=== PATIENT | male | born 1965 | race Caucasian/White ===

== ENCOUNTER 2017-02-28 11:00 | Inpatient (IN) | payer OTHER ==
[~2017-02-28] VITALS: Ht 180.3 cm; Wt 107.4 kg
--- NOTE | ~2017-02-28 | EKG ---
[address] [place] [address] ELECTROCARDIOGRAM REPORT Name: LEEROYJINNY M Room #: 421-P [facility].R.#: [id number] Admission: 02/28/17 Attend Phys: Leeroy Aguilar MD Discharge: Date of : 69 Report #: [id number] THIS REPORT FOR: //name// [facility] ED Test Date: 2017-02-28 Test Time: 11:18:16 Pat Name: JINNY UMAÑA Department: Room: [facility] Gender: M [employer] Floor Walker: Gomez WINTER : 1965 Requested By: Sherley Philippe Order Number: [id number] MD: Fadi Lincoln Measurements Intervals [place] Rate: 123 P: 39 NC: 142 QRS: -18 QRSD: 91 T: 125 QT: 330 QTc: 472 Interpretive Statements Sinus tachycardia Probable left atrial enlargement LVH with secondary repolarization abnormality Baseline wander in lead(s) V4,V5 Compared to ECG 03/10/2013 06:14:06 No significant change was found Electronically Signed On 03-01-2017 8:18:10 CDT by Fadi Lincoln [email or web address] <ELECTRONICALLY SIGNED> By: Fadi Lincoln MD, [facility] 03/01/17 0818 1118 1118 Fadi Lincoln MD, [facility] /EPI
--- NOTE | ~2017-02-28 | 2DMMODE ---
[facility] [address] [place] [address] 2 D/M-MODE ECHOCARDIOGRAM Name: JINNY UMAÑA Room #: 421-P [facility] IN .R.#: [id number] Admission: 02/28/17 Attend Phys: Leti Robledo Discharge: Date of : 69 Date of Service: 03/01/17 1033 Report #: [id number] THIS REPORT FOR: //name// APPROVED REPORT Study performed: 03/01/2017 08:08:32 EXAM: Comprehensive 2D, Doppler, and color-flow Echocardiogram Patient Location: Echo lab Room #: 421 Other Information Study Quality: Adequate Indications Abnormal ECG Congestive Heart Failure 2D Dimensions RVDd: 35.43 mm LVEF(%): 34.70 (>50%) IVSd: 14.28 (7-11mm) LVOT Diam: 25.73 (18-24mm) LVDd: 60.46 mm PWd: 14.00 (7-11mm) Ascending Ao: 33.70 (22-36mm) LVDs: 50.24 (25-40mm) Aortic Root: 32.36 mm IVC: 25.00 mm Roberts's LVEF: 34.70 % Volumes Left Atrial Volume (Systole) Single Plane 4CH: 72.37 mL Single Plane 2CH: 42.17 mL LA ESV Index: 26.00 mL/m2 Aortic Valve AoV Peak Louis.: 1.42 m/s AO Peak Gr.: 8.04 mmHg LVOT Max P.70 mmHg LVOT Max V: 1.19 m/s JENNIFER Vmax: 4.38 cm2 Mitral Valve E/A Ratio: 0.8 MV Decel. Time: 262.89 ms MV E Max Louis.: 0.75 m/s MV A Louis.: 1.00 m/s MV PHT: 76.24 ms [facility] [place] [address] 2 D/M-MODE ECHOCARDIOGRAM Name: JINNY UMAÑA Room #: 421-P [facility] IN ..#: [id number] Admission: 02/28/17 Attend Phys: Leti Robledo Discharge: Date of : 69 Date of Service: 03/01/17 1033 Report #: [id number] IVRT: 121.11 ms Pulmonary Valve PV Peak Louis.: 1.12 m/s PV Peak Gr.: 4.98 mmHg Pulmonary Vein P Vein S: 0.87 m/s P Vein A: 0.13 m/s P Vein D: 0.44 m/s P Vein A Dur.: 55.4 msec P Vein S/D Ratio: 1.98 Tricuspid Valve TR Peak Louis.: 3.23 m/s RAP Estimate: 10.00 mmHg TR Peak Gr.: 41.80 mmHg Left Ventricle Left ventricle is mildly dilated. There is normal LV segmental wall motion. Mild concentric left ventricular hypertrophy. Left ventricular systolic function is mildly reduced. LVEF is 45-50%. Grade I - abnormal relaxation pattern. Right Ventricle The right ventricle is normal size. The right ventricular systolic function is normal. Atria The left atrium size is normal. The right atrium size is normal. Aortic Valve The aortic valve is normal in structure. No aortic regurgitation is present. There is no aortic valvular stenosis. Mitral Valve The mitral valve is normal in structure. Trace mitral regurgitation. No evidence of mitral valve stenosis. Tricuspid Valve The tricuspid valve is normal in structure. Trace tricuspid regurgitation. Pulmonic Valve Pulmonic valve is not well visualized. Trace pulmonic regurgitation. Great Vessels The aortic root is normal in size. IVC is dilated and collapses [facility] [address] [place] [address] 2 D/M-MODE ECHOCARDIOGRAM Name: JINNY UMAÑA Room #: 421-P [facility] IN .#: [id number] Admission: 02/28/17 Attend Phys: Leti Robledo Discharge: Date of : 69 Date of Service: 03/01/17 1033 Report #: [id number] >50% with inspiration. Pericardium There is no pericardial effusion. There is no pleural effusion. <Conclusion> Left ventricular systolic function is mildly reduced. LVEF is 45-50%. There is normal LV segmental wall motion. Grade I diastolic dysfunction. The aortic valve is normal in structure. No aortic valvular stenosis or insufficiency. The mitral valve is normal in structure. Trace mitral regurgitation. Pulmonary artery pressure of 45-50mmHg There is no pericardial effusion. <ELECTRONICALLY SIGNED> By: Fadi Lincoln MD, [facility] 03/01/17 1033 1033 1033 Fadi Lincoln MD, FAC /INF
--- NOTE | ~2017-02-28 | HC ---
[facility] [address] [address] CONSULTATION Name: JINNY UMAÑA Room #: 421-P [facility] IN .R.#: [id number] Admission: 03/01/17 Attend Phys: Leeroy Aguilar MD Discharge: Date of : 69 Report #: [id number] THIS REPORT FOR: //name// CC: FAM unknown Leeroy Aguilar REASON FOR CONSULTATION: Cardiomyopathy. HISTORY OF PRESENT ILLNESS: The patient is a 51-year-old gentleman with a nonischemic cardiomyopathy. Coronary angiography within the past year was unrevealing. 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 He now presents with a nasal congestion and audible wheezing. He has had a cough productive of green mucus. This all seemed to start after he mowed some yards several days ago. He continues to have audible wheezing. He denies chest heaviness or pressure. No palpitations, near syncope or syncope. His heart rates were elevated on presentation in the 120 range with sinus mechanism. I was asked to see him in this regard. He denies orthopnea or paroxysmal nocturnal dyspnea. He reports that his dry weight has been stable at around 248 pounds. He tells me that his cardiomyopathy and heart failure is related to severe untreated sleep apnea. ALLERGIES: No known drug allergies. MEDICATIONS: Include furosemide 40 mg daily, potassium 20 mEq daily, lisinopril 10 mg daily and carvedilol. PAST MEDICAL HISTORY: His past history and medical records have been reviewed and include a predominantly right heart failure, nonischemic cardiomyopathy; sleep apnea, untreated; hypertension. SOCIAL HISTORY: He is nonsmoker, occasional drinker. FAMILY HISTORY: Unremarkable for premature coronary disease. REVIEW OF SYSTEMS: All systems negative except as that noted above. PHYSICAL EXAMINATION: GENERAL: A pleasant gentleman who is audibly wheezing with prolonged expiratory phase. VITAL SIGNS: Blood pressure is 130/79, heart rate of 106 and regular. He is afebrile, 236 pounds, 5 feet 11 inches tall. HEENT: There are neither xanthelasma, subcutaneous xanthomata, oral mucosal or digital cyanosis or kyphoscoliosis present. CHEST: Reveals scattered rhonchi and mid to end expiratory wheezes. There is a prolonged expiratory phase. CARDIOVASCULAR: Regular rate and rhythm with normal S1, S2. Jugular venous pressure does not appear to be elevated. [facility] [address] [place] [address] CONSULTATION Name: JINNY UMAÑA Leti Room #: 421-P [facility] IN M.R.#: [id number] Admission: 03/01/17 Attend Phys: Leeroy Aguilar MD Discharge: Date of : 69 Report #: [id number] ABDOMEN: Soft, obese, nontender. EXTREMITIES: With trace edema. Radial pulses are 2+. NEUROLOGIC: Alert with a nonfocal exam. LABORATORY DATA: EKG sinus tachycardia with nonspecific ST segment abnormality. Sodium is 134, potassium 4.7, creatinine 1.1, troponin of 0, proBNP of 1140. White count 12.7, hemoglobin 14, hematocrit 43, platelet count 302. Chest x-ray is normal. CT scan of the chest demonstrates no evidence of pulmonary emboli, cardiomegaly is present. IMPRESSION: 1. Chronic obstructive pulmonary disease/asthma exacerbation, possible lower respiratory tract infection. 2. Sinus tachycardia, physiologic response to bronchospasm and probable infection. 3. Cardiomyopathy, nonischemic. 4. Hypertension. RECOMMENDATIONS: 1. Pulmonary evaluation. 2. Resume usual heart failure medications, his volume status appears stable. 3. Congestive heart failure, acute exacerbation of heart failure is not thought to be related to his presenting symptoms. Thank you for asking me to participate in his care. <ELECTRONICALLY SIGNED> By: Fadi Lincoln MD, FACC 03/02/17 0853 0730 0858 Fadi Lincoln MD, FACC /nt
--- NOTE | ~2017-02-28 | HC ---
[facility] [place] [address] CONSULTATION Name: JINNY UMAÑA Leti KILGORE Room #: 421-P ADM IN M.R.#: [id number] Admission: 03/01/17 Attend Phys: Leeroy Aguilar MD Discharge: Date of : 69 Report #: [id number] THIS REPORT FOR: //name// CC: FAM unknown Leeroy Aguilar PULMONARY CONSULTATION REFERRAL PHYSICIAN: Dr. Aguilar. REASON FOR REFERRAL: Dyspnea. HISTORY OF PRESENT ILLNESS: The patient is a 51-year-old white male who presents to the emergency room with dyspnea and congestion. A pulmonary consultation was requested. The patient is quite sleepy at this moment, not able to stay awake. Lot of the history obtained from the records and the ER documentation. He states that he has been ill for about 3 weeks. Symptoms had been gradually worsening, with increasing congestion and headache along with a productive cough. He also states that he has been diagnosed with a liver condition. Additional history suggests the patient has history of sleep apnea, but has not been treated. He has also been seen at [facility] Cardiology Department. The patient had a coronary arteriogram, which was said to be normal. He has nonischemic cardiomyopathy. Otherwise, no chest pain or febrile illness, night sweats or chills. PAST MEDICAL HISTORY: As mentioned above. Nonischemic cardiomyopathy, apparently to obstructive sleep apnea, currently not treated; hypertension and history of heart failure. ALLERGIES: None to medications. HOME MEDICATIONS: Include lisinopril, Coreg, Lasix and potassium supplements. FAMILY HISTORY: Noncontributory. SOCIAL HISTORY: The patient drinks socially. Denies any tobacco use. REVIEW OF SYSTEMS: As mentioned above. Otherwise, it is difficult as this patient is quite sleepy at this moment. [facility] [address] [address] CONSULTATION Name: LEEROYJINNY M Room #: 421-P [facility] IN .R.#: [id number] Admission: 03/01/17 Attend Phys: Leeroy Aguilar MD Discharge: Date of : 69 Report #: [id number] PHYSICAL EXAMINATION: GENERAL: He is awake. He is arousable, but is quite sleepy, in no apparent distress. VITAL SIGNS: Temperature is 97.8 degrees Fahrenheit, pulse is 100-74 beats per minute, blood pressure 147/81 and O2 saturation is 95%. HEENT: Normocephalic, atraumatic. NECK: Supple, without lymphadenopathy or thyromegaly. CHEST: Breath sounds are decreased bilaterally due to poor effort. No obvious wheezes or rales at this moment. CARDIOVASCULAR: Heart sounds are distant. No obvious murmurs or gallop. Pulses are 2+/4+ bilaterally. ABDOMEN: Obese, soft, nontender. No organomegaly or masses felt. GENITOURINARY: Deferred. RECTAL: Deferred. EXTREMITIES: There is edema, cyanosis or clubbing. LABORATORY DATA: Chest x-ray and CT chest were reviewed. They were unremarkable. No obvious infiltrates. His electrolytes are normal, creatinine is 1.1. Alkaline phosphatase is 230. The rest of the liver profile and liver enzymes were unremarkable. Albumin is 3.0. WBC 12,700, hemoglobin is 14.3. No evidence of bandemia. Arterial blood gas revealed pH of 7.41, pCO2 of 36 and pO2 74 on room air. IMPRESSION: 1. Progressive dyspnea, cough and congestion in this 51-year-old white male. Etiology is unclear, but may be allergies versus possible viral upper respiratory tract infection. 2. Current history of obstructive sleep apnea, no underlying chronic treatment. We will discuss further with the patient once he is more awake. 3. Nonischemic cardiomyopathy. His echocardiogram performed earlier today showed an ejection fraction of 45%, mildly reduced left ventricular function, grade 1 diastolic dysfunction, aortic and mitral valve are grossly unremarkable, pulmonary artery pressure measuring 45-50 mmHg. 4. Tachycardia, much improved this morning. RECOMMENDATIONS: When the patient is more awake, we will discuss with the patient regarding his sleep apnea and the importance of treatment. Given his nonischemic cardiomyopathy, the patient will benefit from treatment of his sleep apnea. Thank you for this consultation. <ELECTRONICALLY SIGNED> By: Serge Botello MD 03/01/17 1638 1320 1402 Serge Botello MD /nt
[~2017-02-28 11:00] MED LIST: K-DUR 20 MEQ T20 MEQ PO; LASIX 40 MG TAB40 M1 PO; LISINOPRIL10 MG PO; LISINOPRIL5 MG PO; NOHOMEMEDICATIONS; NORCO 5-325 TA1 EACH PO; POTASSIUM20 PO; PROTONIX40 MG PO; ZPAK PO
[2017-02-28 11:03] VITALS: BP 148/98
[2017-02-28 11:31] LABS: ABSOLUTE NEUTROPHILS 9.6 thou/uL (1.4-8.2); BASOPHILS 0.6 % (0.0-2.0); EOSINOPHILS 2.3 % (0.0-3.0); HEMATOCRIT 48.4 % (42.0-52.0); HEMOGLOBIN 16.3 gm/dL (14.0-18.0); MCH 30.9 pg (26.0-34.0); MCHC 33.7 g/dL (28.0-37.0); MCV 91.7 fL (80.0-100.0); MONOCYTES 4.6 % (1.0-8.0); PLATELET COUNT 274 thou/uL (150-400); POLYS 79.5 % (36.0-66.0); RBC 5.28 mil/uL (4.50-6.00); RDW 15.4 % (10.5-14.5)
[2017-02-28 11:35] LABS: MANUAL DIFF NO
[2017-02-28 11:38] LABS: CALCIUM 9.7 mg/dL (8.5-10.1); CREATININE 1.2 mg/dL (0.7-1.3)
[2017-02-28 11:39] LABS: POTASSIUM 4.9 mmol/L (3.5-5.1)
[2017-02-28 11:50] LABS: ALBUMIN 3.4 g/dL (3.4-5.0); TOTAL BILIRUBIN 0.4 mg/dL (<0.1-1.0); TOTAL PROTEIN 9.2 g/dL (6.4-8.2); TROPONIN-I 0.04 ng/mL (<0.04-0.07)
[2017-02-28 13:14] LABS: URINE BILIRUBIN NEGATIVE (Negative); URINE BLOOD NEGATIVE (Negative); URINE COLOR YELLOW; URINE GLUCOSE-RANDOM* TRACE (Negative); URINE KETONES NEGATIVE (Negative); URINE NITRITE NEGATIVE (Negative); URINE PROTEIN (DIPSTICK) 1+ (Negative); URINE UROBILINOGEN 0.2 E.U./dl (0.2-1.0)
[2017-02-28 13:17] LABS: BACTERIA None Seen /HPF (None Seen); CASTS None Seen /LPF (None Seen); CRYSTALS None Seen /LPF (None Seen); SQUAMOUS None Seen /LPF (0-3); URINE RBC None Seen /HPF (0-2); URINE WBC None Seen /HPF (0-5)
[2017-02-28 14:36] LABS: ABG SAMPLE TYPE ARTERIAL; BE(vivo) -1.3 mmol/L (-2 to +3); HCO3 22.8 mmol/L (22.0-26.0); LACTATE 1.79 mmol/L (0.5-2.0); O2(CT) 20.2 mL/dL (15.0-23.0); O2Hb 93.7 % (92.0-98.0); PCO2 36.3 mmHg (35.0-45.0); PO2 72.4 mmHg (80.0-100.0); pH 7.415 (7.360-7.450); sO2 94.9 % (92.0-98.0); tCO2 23.9 mmol/L (24.0-30.0)
[2017-02-28 14:37] LABS: STICK SITE R.RADIAL
[2017-02-28] MEDS ORDERED: PREDNISONE 20 M20 MG PO ×2 (15:45→15:48)
[2017-02-28] MEDS ORDERED: VENTOLIN HFA 1818 GM INH ×2 (15:45→15:48)
[2017-02-28 17:35] VITALS: BP 172/100
[2017-02-28 20:00] VITALS: BP 162/103
[2017-03-01] MEDS ORDERED: CARVEDILOL25 MG PO (02:50)
[2017-03-01] MEDS ORDERED: LASIX 20 MG TAB20 MG PO (02:53)
[2017-03-01] MEDS ORDERED: ALDACTONE25 MG PO (02:54)
[2017-03-01 04:00] VITALS: BP 131/79
[2017-03-01 06:38] LABS: HEMATOCRIT 43.6 % (42.0-52.0); MCH 30.1 pg (26.0-34.0); MCHC 32.7 g/dL (28.0-37.0); MCV 92.1 fL (80.0-100.0); RBC 4.73 mil/uL (4.50-6.00); RDW 15.2 % (10.5-14.5); WBC 12.7 thou/uL (4.0-11.0)
[2017-03-01 06:47] LABS: HEMOGLOBIN 14.3 gm/dL (14.0-18.0)
[2017-03-01 06:58] LABS: CALCIUM 9.3 mg/dL (8.5-10.1); CREATININE 1.1 mg/dL (0.7-1.3); POTASSIUM 4.7 mmol/L (3.5-5.1); TOTAL BILIRUBIN 0.2 mg/dL (<0.1-1.0); TOTAL PROTEIN 8.2 g/dL (6.4-8.2)
[2017-03-01 07:26] VITALS: BP 147/81
[2017-03-01 15:35] VITALS: BP 128/68
[2017-03-01 20:00] VITALS: BP 120/52
[2017-03-02 04:59] VITALS: BP 147/82
[2017-03-02 06:30] LABS: HEMATOCRIT 43.5 % (42.0-52.0); HEMOGLOBIN 14.4 gm/dL (14.0-18.0); MCH 30.4 pg (26.0-34.0); MCHC 33.1 g/dL (28.0-37.0); MCV 91.8 fL (80.0-100.0); RBC 4.74 mil/uL (4.50-6.00); RDW 14.9 % (10.5-14.5); WBC 16.1 thou/uL (4.0-11.0)
[2017-03-02 06:41] LABS: CALCIUM 9.4 mg/dL (8.5-10.1); CREATININE 1.2 mg/dL (0.7-1.3); POTASSIUM 4.6 mmol/L (3.5-5.1)
[2017-03-02 08:00] VITALS: BP 150/102
[2017-03-02 16:00] VITALS: BP 131/87
[2017-03-02 20:00] VITALS: BP 142/90
[2017-03-03 04:00] VITALS: BP 117/71
[2017-03-03 07:28] VITALS: BP 148/90
[2017-03-03 15:47] VITALS: BP 142/93
[2017-03-03 20:00] VITALS: BP 121/73
[2017-03-04 05:30] VITALS: BP 152/77
[2017-03-04 07:53] VITALS: BP 148/98
[2017-03-04 16:29] VITALS: BP 125/90
[2017-03-04 19:49] VITALS: BP 157/85
[2017-03-05 04:09] VITALS: BP 140/72
[2017-03-05 08:20] VITALS: BP 154/97
[2017-03-05] MEDS ORDERED: LASIX 40 MG TAB40 M1 PO (09:47)
[2017-03-05 14:07] VITALS: BP 140/72
== END 2017-03-05 15:41 | disposition home or self-care (01) | DRG 292 ==
LOC: ER 11:00 → EROBS 15:52 → 4E 15:52
PROVIDERS: Family Medicine; Internal Medicine Pulmonary Disease; Physician Assistant
DX: I11.0 Hypertensive heart disease with heart failure (principal); J44.1 Chronic obstructive pulmonary disease with (acute) exacerbation; I50.32 Chronic diastolic (congestive) heart failure; I42.9 Cardiomyopathy, unspecified; F17.210 Nicotine dependence, cigarettes, uncomplicated; G47.33 Obstructive sleep apnea (adult) (pediatric); E66.9 Obesity, unspecified; D72.829 Elevated white blood cell count, unspecified; E11.9 Type 2 diabetes mellitus without complications; Z79.4 Long term (current) use of insulin; Z68.33 Body mass index [BMI] 33.0-33.9, adult; Z79.899 Other long term (current) drug therapy; Z86.73 Personal history of transient ischemic attack (TIA), and cerebral infarction without residual deficits; Z98.61 Coronary angioplasty status
CPT/HCPCS: 10183

== ENCOUNTER 2018-10-01 15:48 | Inpatient (IN) | payer OTHER ==
[~2018-10-01] VITALS: Ht 180.3 cm; Wt 108.9 kg
--- NOTE | ~2018-10-01 | HC ---
[facility] [place] [address] CONSULTATION Name: JINNY UMAÑA Room #: 207-P [facility] IN M.R.#: [id number] Admission: 10/01/18 Attend Phys: Bryn Babin MD Discharge: Date of : 69 Report #: [id number] THIS REPORT FOR: //name// CC: FAM unknown NO PCP Bryn Babin DATE OF SERVICE: 10/02/2018 HISTORY OF PRESENT ILLNESS: The patient is a 53-year-old white male admitted through the Emergency Department with slurred speech noted to have dysarthria. MRI confirmed a left insular infarct 24-48 hours old. He is right handed. He also has been diagnosed with acute renal insufficiency and chronic kidney disease. He denies focal weakness or any sensory changes. Denied any problems swallowing. We are seeing him in rehabilitation medicine consultation. PAST MEDICAL HISTORY: Includes bilateral shoulder pain for the last 3 months, history of CHF, hypertension, COPD, obstructive sleep apnea, borderline diabetes mellitus. MEDICATIONS: Please see the full medication listing. This includes vitamins and herbals, and supplements and over the counters as best reported. SOCIAL HISTORY: Lives in a house with a significant other. There are some steps going in and out. He did not utilize gait aids. His significant other works part time receptionist. HABITS: Polysubstance abuse, apparently smokes meth daily. REVIEW OF SYSTEMS: No current complaints of chest pain, shortness of breath or abdominal discomfort. PHYSICAL EXAMINATION: GENERAL: A 53-year-old right-handed white male in no obvious distress. VITAL SIGNS: Last recorded temperature 36.7, pulse 103, respirations 16, blood pressure 161/100. He was sleepy, but would arouse. HEENT: Facies appeared to be symmetric. EOMs appeared to be full. NEUROLOGIC: He has functional range of motion of the upper and lower extremities. I did not note any focal weakness of either upper or lower extremities. No obvious focal sensory decrease. He was cooperative, follows commands without difficulty. Tone appeared to be intact. ASSESSMENT: A 53-year-old right-handed white male with following problem list: 1. Left insular infarct noted to be acute/subacute. 2. Dysarthria. 3. Rule out right-sided weakness. This was noted by some staff members. [address] [address] CONSULTATION Name: JINNY UMAÑA Room #: 207-P [facility] IN M.R.#: [id number] Admission: 10/01/18 Attend Phys: Bryn Babin MD Discharge: Date of : 69 Report #: [id number] 4. Acute renal insufficiency superimposed on chronic kidney disease. 5. Congestive heart failure. 6. Hypertension. 7. Chronic obstructive pulmonary disease. 8. Obstructive sleep apnea. 9. Borderline diabetes mellitus. PLAN: Therapy evaluations are underway. We will be glad to follow along regarding his rehab therapy needs. By: 1601 0029 Papo Welch MD /STEFFANIE
--- NOTE | ~2018-10-01 | HC ---
[facility] [place] [address] CONSULTATION Name: JINNY UMAÑA Leti KILGORE Room #: 207-P ADM IN M.R.#: [id number] Admission: 10/01/18 Attend Phys: Bryn Babin MD Discharge: Date of : 69 Report #: [id number] THIS REPORT FOR: //name// CC: FAM unknown NO PCP Bryn Babin HISTORY OF PRESENT ILLNESS: The patient is a 53-year-old male who presented to the Emergency Room with slurred speech. The patient states he had never had an episode like this before. He was last seen normal at 1:30 a.m. and when he woke up, the symptoms were first noticed at 2:30 p.m. The patient has other issues including bilateral shoulder pain, coughing and frequent urination. The patient has had an MRI/MRA of the head. This demonstrates an acute left insular stroke. The patient states that there seems to be some improvement in his speech since the symptoms began and the more he talks, the better it seems to get as well. Prior to this, he had been on aspirin 81 mg daily, but had not taken his medication for a week. He had run out of it and had just not gone to the store to buy more aspirin. PAST MEDICAL HISTORY: Hypertension, hyperlipidemia. PAST SURGICAL HISTORY: Unremarkable. MEDICATIONS: At home, Coreg 12.5 mg b.i.d., lisinopril 10 mg daily, potassium 10 mEq daily, Lipitor 40 mg daily, metformin 500 mg b.i.d., spironolactone 25 mg daily. ALLERGIES: None. PHYSICAL EXAMINATION: VITAL SIGNS: Temperature is 36.6, pulse rate 103, respiratory rate 18, blood pressure 144/85, bedside pulse oximetry 94% on room air. NEUROLOGIC: Cranial nerves 2-12 are grossly intact. The patient has mild to moderately slurred speech, which does seem to improve the more he talks. Motor exam demonstrates symmetrical strength in all 4 extremities with tone and bulk normal. Reflexes are symmetrical throughout. Coordination reveals intact finger to nose. Gait was not tested. LABORATORY DATA: Hematology: White blood cell count 8.7; hemoglobin 16; hematocrit 47.9; MCV 90.9; platelet count 240,000. Urinalysis 2+ glucose. Chemistry: Sodium 135, potassium 4.6, chloride 102, carbon dioxide 28, BUN 17, creatinine 1. Hemoglobin A1c 9.5. Triglycerides 483, cholesterol 207. IMPRESSION: This patient has had a stroke. This is most likely secondary to small vessel disease from hypertension, [place]lipidemia [place] [address] CONSULTATION Name: JINNY UMAÑA Room #: 207-[facility] IN [facility].#: [id number] Admission: 10/01/18 Attend Phys: Bryn Babin MD Discharge: Date of : 69 Report #: [id number] At this point, the patient needs to control his risk factors for stroke, particularly his blood sugar and triglycerides. The patient is on atorvastatin, but perhaps TriCor should be added. I have also increased the patient's aspirin to 325 mg daily. He should continue with speech therapy as an outpatient. I thank you for your kind referral of the patient. By: 0953 1012 Ria Lenz DO /nt
[~2018-10-01 15:48] MED LIST changes: +ALDACTONE25 MG PO; +CARVEDILOL25 MG PO; +LASIX 20 MG TAB20 MG PO; +PREDNISONE 20 M20 MG PO; +VENTOLIN HFA 1818 GM INH
[2018-10-01 15:53] VITALS: BP 126/77
[2018-10-01 17:19] LABS: HEMATOCRIT 47.9 % (42.0-52.0); MCH 30.3 pg (26.0-34.0); MCHC 33.3 g/dL (28.0-37.0); MCV 90.9 fL (80.0-100.0); RBC 5.28 mil/uL (4.50-6.00); RDW 14.8 % (10.5-14.5); WBC 8.7 thou/uL (4.0-11.0)
[2018-10-01 17:27] LABS: APTT 25.8 Seconds (24.5-32.8); PROTIME 10.1 Seconds (9.3-11.4)
[2018-10-01 17:32] LABS: ANION GAP 10 mmol/L (7-16); BUN 26 mg/dL (7-18); CALCIUM 9.5 mg/dL (8.5-10.1); CHLORIDE 96 mmol/L (98-107); CO2 26 mmol/L (21-32); CREATININE 1.4 mg/dL (0.7-1.3); GLUCOSE 307 mg/dL (74-106); POTASSIUM 4.7 mmol/L (3.5-5.1); SODIUM 132 mmol/L (136-145)
[2018-10-01 17:34] LABS: TROPONIN-I <0.06 ng/mL (<0.06)
[2018-10-01 17:59] LABS: BE(vivo) -4.3 mmol/L (-2 to +3); HCO3 21.5 mmol/L (22.0-26.0); PCO2 41.9 mmHg (35.0-45.0); PO2 71.2 mmHg (80.0-100.0); sO2 93.2 % (92.0-98.0)
[2018-10-01 18:00] LABS: pH 7.328 (7.360-7.450)
[2018-10-01 19:18] VITALS: BP 105/75
[2018-10-01 19:34] VITALS: BP 105/75
--- NOTE | 2018-10-01 19:36 | NUR ---
PATIENT SITTING AT BEDSIDE. PASSED SWALLOW SCREEN. SIGNIFICANT OTHER AT BEDSIDE. COOPERATIVE WITH TREATMENT PLAN. DAY MARYAM RN CALLING REPORT AT THIS TIME.
[2018-10-01 19:37] VITALS: BP 121/73; BP 141/83
[2018-10-01 20:02] LABS: AMP/METHAMP POSITIVE (Negative); BARBITURATES Negative (Negative); BENZODIAZEPINES Negative (Negative); COCAINE Negative (Negative); METHADONE Negative (Negative); OPIATES Negative (Negative); PCP Negative (Negative)
[2018-10-01] MEDS ORDERED: PRINIVIL10 MG PO (20:10)
[2018-10-01] MEDS ORDERED: KLOR-CON 1010 MEQ PO (20:11)
[2018-10-01] MEDS ORDERED: ATORVASTATIN CA40 MG PO (20:12)
[2018-10-01] MEDS ORDERED: METFORMIN HCL500 MG PO (20:13)
[2018-10-01 20:15] VITALS: BP 123/81
[2018-10-02 00:02] LABS: CHOLESTEROL 207 mg/dL (<200); HDL CHOLESTEROL 30 mg/dL (>40); TC:HDL 6.9 Ratio (Not establshd); TRIGLYCERIDE 483 mg/dL (<150); VLDL 97 mg/dL (<40)
[2018-10-02 00:03] LABS: SERUM ASSESSMENT Moderate Lipemia
[2018-10-02 00:45] VITALS: BP 136/84
[2018-10-02 01:46] LABS: URINE BILIRUBIN NEGATIVE (Negative); URINE BLOOD NEGATIVE (Negative); URINE CLARITY CLOUDY; URINE COLOR YELLOW; URINE GLUCOSE-RANDOM* 2+ (Negative); URINE KETONES NEGATIVE (Negative); URINE LEUKOCYTES-REFLEX NEGATIVE (Negative); URINE NITRITE-REFLEX NEGATIVE (Negative); URINE PROTEIN (DIPSTICK) NEGATIVE (Negative); URINE SPECIFIC GRAVITY 1.025 (1.005-1.035); URINE UROBILINOGEN 0.2 E.U./dl (0.2-1.0)
[2018-10-02 04:45] VITALS: BP 146/76
--- NOTE | 2018-10-02 05:59 | NUR ---
ARRIVED AROUND 1999; RESTING ON BED; AOX4; SIGNIFICANT OTHER IN THE ROOM; R. SIDE FACE DROOL; SLURRED SPEACH; VS WNL; ABLE TO DRINK AND EAT; NO C/O PAIN; DURING THE NIGHT ABLE TO REST; AMBULATE; VOID; NO C/O PAIN; NO NEURO CHANGES.
--- NOTE | 2018-10-02 08:03 | EKG ---
[address] [employer] [place] [address] ELECTROCARDIOGRAM REPORT Name: JINNY UMAÑA Room #: 207-P ADM IN M.R.#: [id number] Admission: 10/01/18 Attend Phys: Bryn Babin MD Discharge: Date of : 69 Report #: [id number] THIS REPORT FOR: //name// [facility] ED Test Date: 2018-10-01 Test Time: 17:10:23 Pat Name: JINNY UMAÑA Department: Room: 207 Gender: M Clinical Rn: WADE : 1965 Requested By: Beto Bunch Order Number: [id number] MD: Fadi Lincoln Measurements Intervals [place] Rate: 109 P: 42 TX: 162 QRS: -18 QRSD: 88 T: 55 QT: 359 QTc: 484 Interpretive Statements Sinus tachycardia Inferior infarct, old Compared to ECG 02/28/2017 11:18:[address] and T wave abnormality is less prominent Electronically Signed On 10-02-2018 8:03:42 TEXTILE SCIENCE TECHNICIAN by Fadi Lincoln [email or web address] <ELECTRONICALLY SIGNED> By: Fadi Lincoln MD, [facility] 10/02/18802 09 09 Fadi Lincoln MD, [facility] /EPI
--- NOTE | 2018-10-02 09:34 | 2DMMODE ---
[facility] [place] [address] 2 D/M-MODE ECHOCARDIOGRAM Name: JINNY UMAÑA Room #: 207-P ADM IN M.R.#: [id number] Admission: 10/01/18 Attend Phys: Bryn Babin MD Discharge: Date of : 69 Date of Service: 10/02/18 0934 Report #: [id number] THIS REPORT FOR: //name// APPROVED REPORT Study performed: 10/02/2018 08:44:56 EXAM: Comprehensive 2D, Doppler, and color-flow Echocardiogram Patient Location: Echo lab [facility] Status: routine BSA: 2.28 HR: 74 bpm BP: 146/76 mmHg Rhythm: NSR Other Information Study Quality: Adequate Indications CVA/TIA Echo Enhancing Agent Indication: Rule out Shunt Agent(s) / Amount(s) Used: Agitated Saline 7 cc 2D Dimensions RVDd: 38.44 mm IVSd: 12.24 (7-11mm) LVOT Diam: 24.88 (18-24mm) LVDd: 53.18 mm PWd: 12.34 (7-11mm) Ascending Ao: 33.44 (22-36mm) LVDs: 41.10 (25-40mm) Aortic Root: 32.57 mm Volumes Left Atrial Volume (Systole) Single Plane 4CH: 39.03 mL Single Plane 2CH: 50.03 mL LA ESV Index: 22.00 mL/m2 Aortic Valve AoV Peak Louis.: 1.16 m/s AO Peak Gr.: 5.41 mmHg LVOT Max P.91 mmHg LVOT Max V: 0.99 m/s JENNIFER Vmax: 4.13 cm2 [facility] [place] [address] 2 D/M-MODE ECHOCARDIOGRAM Name: JINNY UMAÑA Room #: 207-P [facility] IN [facility].#: [id number] Admission: 10/01/18 Attend Phys: Bryn Babin MD Discharge: Date of : 69 Date of Service: 10/02/18 0934 Report #: [id number] Mitral Valve E/A Ratio: 0.9 MV Decel. Time: 201.28 ms MV E Max Louis.: 0.67 m/s MV A Louis.: 0.72 m/s MV PHT: 58.37 ms IVRT: 124.57 ms Pulmonary Valve PV Peak Louis.: 0.93 m/s PV Peak Gr.: 3.49 mmHg Pulmonary Vein P Vein S: 0.62 m/s P Vein A: 0.27 m/s P Vein D: 0.36 m/s P Vein A Dur.: 101.5 msec P Vein S/D Ratio: 1.72 Tricuspid Valve TR Peak Louis.: 2.54 m/s TR Peak Gr.: 25.87 mmHg PA Pressure: 25.00 mmHg Left Ventricle The left ventricle is normal size. Regional wall motion abnormalities cannot be excluded. Mild concentric left ventricular hypertrophy. Left ventricular systolic function is mildly decreased. LVEF is 45%. Grade I - abnormal relaxation pattern. Right Ventricle The right ventricle is normal size. The right ventricular systolic function is normal. Atria The left atrium size is normal. Interatrial septum is intact without evidence of ASD or PFO. The right atrium size is normal. Aortic Valve The aortic valve is normal in structure. No aortic regurgitation is present. There is no aortic valvular stenosis. Mitral Valve The mitral valve is normal in structure. Trace mitral regurgitation. No evidence of mitral valve stenosis. Tricuspid Valve The tricuspid valve is normal in structure. There is trace tricuspid regurgitation. Estimated PAP 25 mmHg plus the right atrial pressure. [facility] [address] [place] [address] 2 D/M-MODE ECHOCARDIOGRAM Name: JINNY UMAÑA Room #: 207-P [facility] IN .R.#: [id number] Admission: 10/01/18 Attend Phys: Bryn Babin MD Discharge: Date of : 69 Date of Service: 10/02/18 0934 Report #: [id number] There is no pulmonary hypertension. Pulmonic Valve The pulmonary valve is normal in structure. Trace pulmonic regurgitation. Great Vessels The aortic root is normal in size. IVC is not well visualized. Pericardium There is no pericardial effusion. <Conclusion> Technically limited study Left ventricular systolic function is mildly decreased. LVEF is 45%. Mild diastolic dysfunction Interatrial septum is intact without evidence of ASD or PFO; normal contrast bubble study. The aortic valve is normal in structure. No aortic regurgitation or stenosis The mitral valve is normal in structure. Trace mitral regurgitation. There is no pericardial effusion. <ELECTRONICALLY SIGNED> By: Fadi Lincoln MD, FACC 10/02/18933 3 3 Fadi Lincoln MD, FACC /INF
[2018-10-02 10:51] VITALS: BP 138/87
--- NOTE | 2018-10-02 14:08 | NUR ---
Received consult for diabetes education. Pt admitted with slurred speech, cva. + polysubstance abuse, meth. Hx "borderline dm" however now BG 193-339, A1C level pending. Pt working with ST at this time. Carb controlled, heart healthy diet has been ordered. Dropped off some information materials on diabetes at bedside and will follow up in next 1-2 days for education needs.
[2018-10-02 15:05] VITALS: BP 161/100
--- NOTE | 2018-10-02 15:40 | NUR ---
met with patient who was groggy from sleeping. Admits with slurred speech, and has been using meth [place]. Patient and reside with friends. 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 He can drive but licease suspended due to tickets. He ambulates independently [place]. His has older children he reports on their own. He has a dtr that lives with her mother. patient to be evaled for therapy. Sil has no insurnace plan referral to [facility].
--- NOTE | 2018-10-02 17:46 | NUR ---
ASSESSMENT DOCUMENTED. PT ALERT AND ORIENTED. HAD HIGH BP THIS AM. SCHEDULED BP GIVEN ORDERED. PT DENIED HAVING PAIN OR DISCOMFORT. SEEN BY DR. MCELROY. ORDERS NOTED. NEURO ASSESSMENT COMPLETED. EVALUATED BY PT/OT AND SPEECH. NEUROLOGIST CONSULTED. ST ON TELI WITH ACTIVITIES. WILL CONTINUE TO MONITOR.
[2018-10-02 20:15] VITALS: BP 156/85
[2018-10-03] VITALS (7 sets, daily range): BP systolic 139–161; BP diastolic 59–90
[2018-10-03 00:11] LABS: GLYCOHEMOGLOBIN (HGB A1C) 9.5 % (4.8-5.6)
[2018-10-03 04:14] LABS: CALCIUM 8.7 mg/dL (8.5-10.1); POTASSIUM 4.6 mmol/L (3.5-5.1)
--- NOTE | 2018-10-03 05:32 | NUR ---
PT. NO C/O PAIN; SLEEPING MOST OF THE NIGHT; ELEVATED BP EXPECTED AFTER AN STROKE; ASSESSMENT CHARGED; FOLLOWING POC.
[2018-10-03] MEDS ORDERED: BENAZEPRIL HCL20 MG PO (11:47)
[2018-10-03] MEDS ORDERED: FENOFIBRATE160 MG PO (11:47)
[2018-10-03] MEDS ORDERED: CARVEDILOL25 MG PO (11:47)
[2018-10-03] MEDS ORDERED: TRI-BUFFERED A325 M1 PO (11:47)
--- NOTE | 2018-10-03 13:19 | NUR ---
ASSESSMENT DOCUMENTED. PT ALERT AND ORIENTED. MUMBLES WHEN SPEAKING. VSS. DENIES HAVING PAIN OR DISCOMFORT. SEEN BY DR MCELROY AND DR. LOPEZ. ORDERS GIVEN TO DISCHARGE PT TO HOME. DISCHARGE INSTRUCTIONS GIVEN TO PT AND THE . PT VERBERLIZE UNDERSTANDING.
--- NOTE | 2018-10-03 13:48 | NUR ---
Patient to dc today. Sp with outpatient therapy who reports they can assist with [facility] outpatient ST but needs to complete application. Patient/ completed application faxed return to outpatient therapy. Process before approval. Alerted to patient and to call outpatient therapy. vouched for medications in ammount of $40. Alerted phys cannot rec HH as has no insurance. Pharmacy reports one of patients home medications they cannot rec until tomorrow Benazepril (Lotensin) they are aware no further needs
--- NOTE | 2018-10-03 17:03 | NUR ---
[facility] agreeable to [address] for home health. Called patient and he is in agreement and thankful.
--- NOTE | 2018-10-04 16:26 | HC ---
[facility] [place] [address] CONSULTATION Name: LEEROYJINNY Leti KILGORE Room #: 207-P [facility] IN M.R.#: [id number] Admission: 10/01/18 Attend Phys: Bryn Babin MD Discharge: 10/03/18 Date of : 69 Report #: [id number] THIS REPORT FOR: //name// CC: FAM unknown NO PCP Bryn Babin DATE OF SERVICE: 10/02/2018 PULMONARY CONSULTATION REFERRAL PHYSICIAN: Dr. Babin. REASON FOR REFERRAL: Dyspnea, hypersomnolence. HISTORY OF PRESENT ILLNESS: The patient is a 53-year-old gentleman who presented to the Emergency Room with slurred speech, being sleepy. The patient was felt to be hypoxic. A pulmonary consultation was requested. The patient is known to this physician. He was last hospitalized in 2017 for dyspnea. The patient has a known history of sleep apnea, but is not on CPAP due to financial reasons. He does not have insurance. He has been followed at [facility] in the past, most recently at [facility] for his healthcare needs. The patient was in his usual state of health until his spouse noted that he was not in his usual self. His speech was felt to be slowed. He was more sleepy and weak. For that reason, he was brought to the Emergency Room. CT head did not show any evidence of acute CVA, though it did show extensive low attenuation changes throughout the cerebral white matter of indeterminate origin. His chest x-ray in the ER was unremarkable. Currently, he is somewhat somnolent, arousable. He voices no complaints, but denies any chest pain, night sweats or chills or recent febrile illness. PAST MEDICAL HISTORY: Notable for nonischemic cardiomyopathy, history of sleep apnea, not treated; hypertension, morbid obesity, apparent history of TIAs. PAST SURGICAL HISTORY: Unremarkable. ALLERGIES: None to medications. HOME MEDICATIONS: Potassium supplements, Lipitor, Glucophage, Aldactone, lisinopril, Ventolin HFA, prednisone, dose query. FAMILY HISTORY: Noncontributory. SOCIAL HISTORY: He is . Denies any tobacco use. He drinks socially. [facility] [address] [place] [address] CONSULTATION Name: JINNY UMAÑA Leti Room #: 207-P [facility] IN M.R.#: [id number] Admission: 10/01/18 Attend Phys: Bryn Babin MD Discharge: 10/03/18 Date of : 69 Report #: [id number] REVIEW OF SYSTEMS: As mentioned above, otherwise 10-point system review negative. PHYSICAL EXAMINATION: GENERAL: He appears somewhat somnolent, but arousable, in no apparent distress. VITAL SIGNS: Temperature is 98 degrees Fahrenheit, pulse is 100, respiratory rate 16, blood pressure 138/87 mmHg, saturation is 99%. HEENT: Normocephalic, atraumatic. NECK: Supple without lymphadenopathy or thyromegaly. CHEST: Breath sounds are distant. Poor effort. No obvious wheezes or rales. CARDIOVASCULAR: Heart sounds are distant. No obvious murmurs or gallop. Pulses are 2+/4+ bilaterally. ABDOMEN: Obese, soft, nontender. No organomegaly or masses felt. GENITOURINARY: Deferred. RECTAL: Deferred. EXTREMITIES: 1+ bilateral pretibial edema. NEUROLOGIC: He is awake, alert, but somewhat somnolent. LABORATORY DATA: CT head as mentioned above. D-dimer was 0.67. Chest x-ray was grossly unremarkable. No obvious infiltrates or effusion seen. Urine drug screen was positive for marijuana and amphetamines. Echocardiogram showed ejection fraction of 45%, mild diastolic dysfunction. Otherwise, no obvious valvular heart disease. Pulmonary artery pressure was not identified. MRI of the brain shows focal subacute infarct involving the left insular subcortical white matter. Electrolytes are normal. Creatinine is 1.0. WBC 8700, hemoglobin 16.0, platelets are normal. Arterial blood gas revealed pH of 7.32, pCO2 of 41, pO2 of 72 on room air. IMPRESSION: 1. Slurred speech, hypersomnolence, may be related to small cerebrovascular accident. 2. Obstructive sleep apnea, untreated. The patient just applied for Medicaid. Pending Medicaid, the patient should be able to obtain a CPAP mask. He is usually followed at [facility]. 4. Diabetes mellitus, type 2. 5. Hypertension. 6. Obesity. 7. Polysubstance abuse including amphetamines and marijuana. RECOMMENDATIONS: Agree with plans. We will consult social service in assisting the patient in getting Medicaid application. Once this is processed and patient has insurance, CPAP is recommended for the patient. Dietary and exercise program is recommended. Further recommendation per primary team regarding cerebrovascular accident. [address] [address] CONSULTATION Name: JINNY UMAÑA Room #: 207-P DIS IN M.R.#: [id number] Admission: 10/01/18 Attend Phys: Bryn Babin MD Discharge: 10/03/18 Date of : 69 Report #: [id number] Thank you for this consultation. <ELECTRONICALLY SIGNED> By: Serge Botello MD 10/04/18 1626 1712 1919 Serge Botello MD /nt
== END 2018-10-03 14:30 | disposition home health service (06) | DRG 65 ==
LOC: ER 15:48 → 2N 18:49 → EROBS 18:49 → 2N 20:00 → ENTRNSPT 10-03 13:10 → EDTRNSPTSTS 10-03 13:15 → 2N 10-03 14:30
PROVIDERS: Emergency Medicine; Nurse Practitioner Acute Care; ADMIT Internal Medicine
DX: I63.9 Cerebral infarction, unspecified (principal); E87.2 Acidosis; I42.9 Cardiomyopathy, unspecified; I13.0 Hypertensive heart and chronic kidney disease with heart failure and stage 1 through stage 4 chronic kidney disease, or unspecified chronic kidney disease; I50.9 Heart failure, unspecified; R29.810 Facial weakness; J44.9 Chronic obstructive pulmonary disease, unspecified; G47.33 Obstructive sleep apnea (adult) (pediatric); R47.1 Dysarthria and anarthria; E78.5 Hyperlipidemia, unspecified; E11.22 Type 2 diabetes mellitus with diabetic chronic kidney disease; E66.01 Morbid (severe) obesity due to excess calories; G47.10 Hypersomnia, unspecified; F12.10 Cannabis abuse, uncomplicated; F15.10 Other stimulant abuse, uncomplicated; N18.3 Chronic kidney disease, stage 3 (moderate); E11.65 Type 2 diabetes mellitus with hyperglycemia; Z79.82 Long term (current) use of aspirin; Z68.33 Body mass index [BMI] 33.0-33.9, adult; Z79.899 Other long term (current) drug therapy
CPT/HCPCS: 10081

== ENCOUNTER 2019-10-23 15:28 | Inpatient (IN) | payer OTHER ==
[~2019-10-23] VITALS: Ht 180.3 cm; Wt 102.2 kg
--- NOTE | ~2019-10-23 | EKG ---
[facility] [place] [address] ELECTROCARDIOGRAM REPORT Name: JINNY UMAÑA JR [id number] Admission: 10/23/19 Attend Phys: Discharge: Date of : 69 Report #: [id number] THIS REPORT FOR: cc: MAYTE - No family physician/PCP MAYTE - No family physician/PCP Akila Wilburn MD ~ THIS REPORT FOR: //name// [facility] ED Test Date: 2019-10-23 Test Time: 17:48:03 Pat Name: JINNY UMAÑA Department: Room: Gender: M Contact [facility] 1965 Requested By: Sherley Philippe Order Number: [id number] MD: Measurements Intervals [place] Rate: 102 P: 34 [place]: 159 QRS: -11 QRSD: 98 T: 132 QT: 371 QTc: 484 Interpretive Statements Sinus tachycardia Atrial premature complexes Left atrial enlargement LVH with secondary repolarization abnormality Borderline prolonged QT interval Baseline wander in lead(s) V3 Compared to ECG 10/01/2018 17:10:23 Atrial premature complex(es) now present Atrial abnormality now present Left ventricular hypertrophy now present Early repolarization now present Myocardial infarct finding no longer present [email or web address] By: 47 47 Epiphany Ep[place], /LUIS
--- NOTE | ~2019-10-23 | EKG ---
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 : 1965 Requested By: Moncho Sherman Order Number: [id number] MD: Measurements Intervals [place] Rate: 113 P: 59 PA: 162 QRS: -8 QRSD: 97 T: 144 QT: 334 QTc: 458 Interpretive Statements Sinus tachycardia Left atrial enlargement LVH with secondary repolarization abnormality Compared to ECG 10/24/2019 07:32:29 Atrial abnormality now present Left ventricular hypertrophy now present Early repolarization now present ST (T wave) deviation no longer present Prolonged QT interval no longer present [email or web address] By: [id number] 1324 Epiphany Epiph[place], [place] /EPI
--- NOTE | ~2019-10-23 | EKG ---
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
[~2019-10-23 15:28] MED LIST changes: +ATORVASTATIN CA40 MG PO; +BENAZEPRIL HCL20 MG PO; +FENOFIBRATE160 MG PO; +KLOR-CON 1010 MEQ PO; +METFORMIN HCL500 MG PO; +PRINIVIL10 MG PO; +TRI-BUFFERED A325 M1 PO
[2019-10-23 15:30] VITALS: BP 150/87
[2019-10-23 15:51] LABS: URINE BILIRUBIN NEGATIVE (Negative); URINE BLOOD TRACE (Negative); URINE CLARITY CLEAR; URINE COLOR YELLOW; URINE GLUCOSE-RANDOM* NEGATIVE (Negative); URINE KETONES TRACE (Negative); URINE LEUKOCYTES-REFLEX NEGATIVE (Negative); URINE NITRITE-REFLEX NEGATIVE (Negative); URINE PROTEIN (DIPSTICK) 2+ (Negative); URINE SPECIFIC GRAVITY >= 1.030 (1.005-1.035); URINE UROBILINOGEN 0.2 E.U./dl (0.2-1.0)
[2019-10-23 15:57] LABS: ABSOLUTE NEUTROPHILS 9.4 thou/uL (1.4-8.2); BASOPHILS 0.8 % (0.0-2.0); EOSINOPHILS 1.6 % (0.0-3.0); HEMATOCRIT 52.5 % (42.0-52.0); HEMOGLOBIN 17.1 gm/dL (14.0-18.0); LYMPHOCYTES 13.9 % (24.0-44.0); MCH 29.7 pg (26.0-34.0); MCHC 32.7 g/dL (28.0-37.0); MONOCYTES 4.1 % (1.0-8.0); POLYS 79.6 % (36.0-66.0); RBC 5.77 mil/uL (4.50-6.00); WBC 11.8 thou/uL (4.0-11.0)
[2019-10-23 16:01] LABS: PLATELET COUNT 230 thou/uL (150-400)
[2019-10-23 16:02] LABS: BACTERIA-REFLEX 1-9 Few /HPF (None Seen); CASTS None Seen /LPF (None Seen); CRYSTALS None Seen /LPF (None Seen); SQUAMOUS 0-3 Few /LPF (0-3); URINE RBC 0-2 Rare /HPF (0-2); URINE WBC-REFLEX 0-5 Rare /HPF (0-5)
[2019-10-23 16:04] LABS: CALCIUM 9.1 mg/dL (8.5-10.1); CREATININE 1.2 mg/dL (0.7-1.3); POTASSIUM 4.3 mmol/L (3.5-5.1)
[2019-10-23 16:10] LABS: ALBUMIN 3.6 g/dL (3.4-5.0); TOTAL BILIRUBIN 0.8 mg/dL (<0.1-1.0); TOTAL PROTEIN 8.4 g/dL (6.4-8.2)
[2019-10-23] MEDS ORDERED: SIMVASTATIN40 MG PO (18:10)
[2019-10-23] MEDS ORDERED: CARVEDILOL12.5 MG PO (18:10)
[2019-10-23 18:13] VITALS: BP 153/96
[2019-10-23 18:42] VITALS: BP 123/81
[2019-10-23 18:53] VITALS: BP 128/69
[2019-10-23 23:30] VITALS: BP 144/84
[2019-10-24] VITALS (9 sets, daily range): BP systolic 121–156; BP diastolic 66–106
--- NOTE | 2019-10-24 04:28 | NUR ---
PT ARRIVED TO UNIT AT SHIFT CHANGE. ADMISSION AND ASSESSMENT COMPLETED, CONSENTS SIGNED. PT DENIES SOB OR NAUSEA. REPORTS PAIN IN LOWER RIGHT QUAD OF ABD; HAS BEEN POORLY CONTROLLED WITH OXY IR, OBTAINED ORDER THIS AM FOR IV MORPHINE. PT REPORTS DAILY MARIJUANA USAGE. IVF AND ABX GIVEN. NPO AT MIDNIGHT FOR LAP APPY THIS AM. NO OTHER CONCERNS, WILL CONTINUE TO MONITOR.
[2019-10-24 08:46] LABS: HEMATOCRIT 46.2 % (42.0-52.0); MCH 30.2 pg (26.0-34.0); MCHC 32.4 g/dL (28.0-37.0); MCV 93.2 fL (80.0-100.0); RBC 4.95 mil/uL (4.50-6.00); RDW 15.2 % (10.5-14.5); WBC 8.6 thou/uL (4.0-11.0)
[2019-10-24 08:55] LABS: ALBUMIN 2.8 g/dL (3.4-5.0); CALCIUM 8.5 mg/dL (8.5-10.1); CREATININE 1.1 mg/dL (0.7-1.3); MAGNESIUM 1.8 mg/dL (1.8-2.4); PHOSPHORUS 3.7 mg/dL (2.5-4.9); POTASSIUM 3.8 mmol/L (3.5-5.1)
--- NOTE | 2019-10-24 15:46 | NUR ---
Patient already in OR during shift change, report received from shift production associate nurse. S/P lap appy, report received from PACU nurse. On clear liquids- water trial test done- tolerated well; no nausea, no vomiting and no abdominal pain noted; pt offered and given jello and chicken broth. On O2 at 3lpm via nasal cannula, with sleep apnea monitor at bedside set up by RT. With relatives at bedside. Complained of pain, due PRN pain meds give as prescribed. A+Ox4. On blood sugar monitoring-taken and recorded accordingly. With NS at 75cc/hr, infusing well at L AC. Pt tolerated clear liquids for lunch Dr Sherman informed, asked if ok to advance- agreed. With 3 lap sites on abdomen with dermabond; C/D/I- no signs of infection and bleeding noted. To continue monitoring patient.
--- NOTE | 2019-10-24 16:26 | NUR ---
INITIAL ASSESSMENT: Consult received. SW reviewed chart and spoke with nursing. Pt was admitted from home due to acute appendicitis. Pt had lap. appendectomy earlier today. SW met with pt and dtr at bedside. Introduced role of SW. Pt is alert/orientated x 4. Pt reports he lives at home. Prior to admission, pt was independent with ADLs. No use of DME. Pt was not on O2 prior to admission. Pt's PCP is at [facility]. Pt unable to recall name of PCP. Plan is for pt to discharge home when medically stable. Pt is hoping to be home in time for the [place] on Sunday. Pt will have transportation home. No SW needs identified at this time, but is available to assist should needs arise.
[2019-10-25] VITALS: BP 133/70
[2019-10-25 00:10] LABS: GLYCOHEMOGLOBIN (HGB A1C) 10.9 % (4.8-5.6)
[2019-10-25 04:30] VITALS: BP 111/73
[2019-10-25 05:36] LABS: HEMATOCRIT 42.8 % (42.0-52.0); HEMOGLOBIN 13.8 gm/dL (14.0-18.0); MCH 29.7 pg (26.0-34.0); MCHC 32.3 g/dL (28.0-37.0); MCV 92.1 fL (80.0-100.0); RBC 4.65 mil/uL (4.50-6.00); RDW 14.4 % (10.5-14.5); WBC 10.4 thou/uL (4.0-11.0)
[2019-10-25 05:53] LABS: ALBUMIN 2.5 g/dL (3.4-5.0); CALCIUM 8.2 mg/dL (8.5-10.1); PHOSPHORUS 2.8 mg/dL (2.5-4.9); POTASSIUM 4.4 mmol/L (3.5-5.1)
[2019-10-25 07:25] VITALS: BP 103/65
--- NOTE | 2019-10-25 08:04 | NUR ---
ASSUMED CARE AT 1900, ASSESSMENT COMPLETED. PT DENIED PAIN OR NAUSEA. TOLERATED DINNER. REPORTS PASSING GAS. FOUR LAP SITES C/D/I WITH DERMABOND. PT REQUIRED RE-EDUCATION TO WEAR O2/CO2 MONITOR WHILE ASLEEP; SATTED WELL WHILE AWAKE BUT VERY APNEIC AND REQUIRED O2 TO BE ON. NO OTHER CONCERNS, SHIFT REPORT GIVEN AT 0700.
--- NOTE | 2019-10-25 13:15 | NUR ---
pt's assessment has done, pt is A&OX3, PT is continuing IV abx and pain management, pt 's vs and bs are stable, pt has passed GI gas, but no BM by this time, pt is tolerated meals, pt 's abd LAP sites are clean and dry, pt is relaxing with family now.
[2019-10-25 15:52] VITALS: BP 149/98
--- NOTE | 2019-10-25 18:14 | NUR ---
RN has encaruaged to walk in room and hallway, pt has walked hallway 3times , pt has a good BM today, RN has uptated pt's information to
[2019-10-25 19:44] VITALS: BP 148/94
[2019-10-26 03:22] VITALS: BP 140/93
--- NOTE | 2019-10-26 05:30 | NUR ---
ASSUMED CARE AT 1900. PT HAS C/O PAIN TWICE OVERNIGHT; GAVE TYLENOL EARLY FOR MODERATE RELIEF. ABOUT 0, PT BECAME AGITATED AND ANXIOUS D/T HIS MULTIPLE LINES, BECAME TEARFUL. OBTAINED ORDER FOR MELATONIN TO HELP PT RELAX, ALSO GAVE DOSE OF OXY IR. PT HAS BEEN MORE WHEEZY, EASILY SOB WITH EXERTION, BUT DENIES SOB AT REST; LUNG SOUNDS ARE DIMINISHED. NO OTHER CONCERNS, WILL CONTINUE TO MONITOR.
[2019-10-26 05:33] LABS: HEMATOCRIT 43.7 % (42.0-52.0); MCH 29.8 pg (26.0-34.0); MCHC 32.1 g/dL (28.0-37.0); MCV 92.8 fL (80.0-100.0); RBC 4.71 mil/uL (4.50-6.00); RDW 14.7 % (10.5-14.5); WBC 8.8 thou/uL (4.0-11.0)
[2019-10-26 05:56] LABS: ALBUMIN 2.6 g/dL (3.4-5.0); CALCIUM 8.3 mg/dL (8.5-10.1); CREATININE 0.9 mg/dL (0.7-1.3); PHOSPHORUS 2.4 mg/dL (2.5-4.9)
[2019-10-26] MEDS ORDERED: OXYCODONE HCL 55 MG PO (06:29)
[2019-10-26 07:44] VITALS: BP 149/107
[2019-10-26 15:36] VITALS: BP 122/62
--- NOTE | 2019-10-26 16:04 | H ---
[facility] [place] [address] HISTORY AND PHYSICAL Name: JINNY UMAÑA JR Room #: 360-P ADM IN M.R.#: [id number] Admission: 10/23/19 Attend Phys: Moncho Sherman MD Discharge: Date of : 69 Report #: [id number] THIS REPORT FOR: cc: MAYTE - No family physician/PCP MAYTE - No family physician/PCP Moncho Sherman MD ~ THIS REPORT FOR: //name// CC: Moncho HU physician/PCP DATE OF SERVICE: 10/23/2019 ATTENDING PHYSICIAN: Dr. Sherman. CHIEF COMPLAINT: Abdominal pain. HISTORY OF PRESENT ILLNESS: The patient is a 54-year-old gentleman with CHF and COPD, who presents with right lower quadrant abdominal pain for 2 days. The pain is not able to be characterized by him as he just says yes to everything what prompted. The patient endorses that the pain started 2 days ago, but he has never had this pain in the past. He denies diarrhea or constipation. Denies blood in his stool. He denies fevers, chills, night sweats, chest pain or shortness of air. He has no nausea or vomiting. PAST MEDICAL HISTORY: 1. COPD. 2. CHF. 3. Morbid obesity. 4. Hypertension. 5. Obstructive sleep apnea. 6. Borderline diabetes. PAST SURGICAL HISTORY: 1. Umbilical hernia repair. SOCIAL HISTORY: Occasional alcohol use. Denies tobacco use. Smokes marijuana. He is unemployed. FAMILY HISTORY: Denies coagulopathy. Mother had breast cancer. REVIEW OF SYSTEMS: CONSTITUTIONAL: No fever. No chills. HEENT: Denies blurring of vision, double vision, headaches, hearing loss, sinus drainage or sore throat. Denies blurring of vision, double vision, headaches, hearing loss, sinus drainage or sore throat. [facility] [address] [place] [address] HISTORY AND PHYSICAL Name: JINNY UMAÑA Room #: 360-P [facility] IN .[place].#: [id number] Admission: 10/23/19 Attend Phys: Moncho Sherman MD Discharge: Date of : 69 Report #: [id number] CARDIOVASCULAR: See above and below. RESPIRATORY: See above and below. GASTROINTESTINAL: See above and below. GENITOURINARY: Denies dysuria or hematuria or kidney stones. No urinary frequency, urgency or incontinence. Denies dysuria or hematuria or kidney stones. No urinary frequency, urgency or incontinence. MUSCULOSKELETAL: No joint pain. No muscle pain. NEUROLOGICAL: Denies tremor, stroke or seizure. Denies tremor, stroke or seizure. HEMATOLOGIC / LYMPHATICS: Denies easy bruising, easy bleeding or enlarged lymph nodes. SKIN: No rash or ulceration. ENDOCRINE: No heat or cold intolerance PSYCHIATRIC: Denies depression, anxiety, or schizophrenia. PHYSICAL EXAMINATION: VITAL SIGNS: Temperature 36.5, pulse 113, respiratory rate 24, blood pressure 153/96, pulse ox 94% on 1 liter nasal cannula. GENERAL: No apparent distress, alert and oriented x3. HEENT: PERRLA, EOMI, MMM, NCAT NECK: Supple. No LAD CARDIOVASCULAR: Regular rhythm and rate. Hemodynamically stable. Normal capillary refill. Regular rhythm and rate. Hemodynamically stable. Normal capillary refill. PULMONARY: Nonlabored. Clear to auscultation bilaterally ABDOMEN: Soft, morbidly obese, tender to palpation in the right lower quadrant with voluntary guarding. Positive rebound. Positive Rovsing's sign. Positive recurrent umbilical hernia. EXTREMITIES: Calves soft, nontender, no edema. SKIN: No rashes or bruises. PSYCHIATRIC: Normal mood and affect Normal mood and affect NEUROLOGICAL: Grossly intact. CN II-XII grossly intact. MUSCULOSKELETAL: 5/5 strength in upper extremities and lower extremities bilaterally LYMPHATICS: No cervical, inguinal, or supraclavicular lymphadenopathy. LABORATORY DATA: White blood count 11.8, hemoglobin 17.1, hematocrit 52.5, platelets 230. Sodium 133, potassium 4.3, creatinine 1.2, glucose 235. Lactic acid 2.1, total bilirubin 0.8, AST 21, ALT 32, alkaline phosphatase 229, albumin 3.6. Lipase 81. IMAGING: CT of the abdomen and pelvis. Impression: 1. CT findings consistent with acute appendicitis without evidence of [address] [address] HISTORY AND PHYSICAL Name: JINNY UMAÑA Room #: 360-P ADM IN M.R.#: [id number] Admission: 10/23/19 Attend Phys: Moncho Sherman MD Discharge: Date of : 69 Report #: [id number] perforation, abscess or fluid collection. ASSESSMENT: The patient is a 54-year-old male with acute appendicitis and many comorbidities. PLAN: 1. Admit to Dr. Sherman. 2. IV antibiotics. 3. Clear liquid diet. N.p.o. at midnight. 4. Consent for laparoscopic appendectomy, possible open-ended. 5. Cautious IV fluid resuscitation with many comorbidities. <ELECTRONICALLY SIGNED> By: Moncho Sherman MD 10/26/19 1604 1800 1820 Moncho Sherman MD /nt
[2019-10-26 19:19] VITALS: BP 133/85
--- NOTE | 2019-10-26 19:22 | NUR ---
pt is A&OX3, PT is continuing IV abx and pain management , pt has SOB with activities, RN has called dr to report abnormal chest X-RAY, NO new order today, but pt want dc to home without DR order, RNs have explained to the pt .RN has updated pt's information to pt's .
--- NOTE | 2019-10-27 02:20 | NUR ---
ASSUNED CARE OF PT AT 1900HRS. PT IS AOX3-4 AND LETS NEEDS BE KNOWN. PT HAS A STEADY GAIT AND IS UP AD [place] AT THIS TIME. SURGICAL SITES ARE C/D/I. PT IS UPSET ABOUT BEING IN THE HOSPITAL AND WANTS TO GO HOME. PT ASKED TO BE LEFT ALONE AND MINIMIZE INTERACTION. PT IS DOING WELL WITHOUT O2. PT REPORTED SOME PAIN AND WAS TREATED WITH PRN PAIN MEDS. PT WAS ABLE TO GET COMFORTABLE AND SLEEP PART OF THE SHIFT. VSS AND NO S/S OF ACUTE DISTRESS. WILL CONTINUE TO MONITOR.
[2019-10-27 04:41] VITALS: BP 154/105
[2019-10-27 07:55] VITALS: BP 153/108
[2019-10-27] MEDS ORDERED: GLUCOPHAGE1000 MG PO (10:22)
[2019-10-27] MEDS ORDERED: TRADJENTA5 MG PO (10:22)
[2019-10-27] MEDS ORDERED: CARVEDILOL25 MG PO (10:23)
[2019-10-27] MEDS ORDERED: COLACE 100 MG100 MG PO (11:06)
[2019-10-27] MEDS ORDERED: MIRALAX17 GM PO (11:06)
[2019-10-27] MEDS ORDERED: CEFDINIR300 MG PO (11:08)
[2019-10-27] MEDS ORDERED: METRONIDAZOLE500 M4 PO (11:08)
[2019-10-27 14:45] VITALS: BP 153/108
--- NOTE | 2019-10-27 15:49 | NUR ---
DISCHARGE NOTE: SW reviewed chart and spoke with nursing and attending physician. Pt is medically stable for discharge home today. SW met with pt at bedside to discuss discharge plan. Pt states he is unable to pay for his new medications. SW vouched for (Metformin, Tradjenta, Coreg, Omnicef, and Metronidazole) Total $480. SW notified Director of Case Mgmt of total. Pt has [employer] Gold Card and has been encouraged to follow up at [facility] for primary care. Pt verbalized understanding. Pt's family to provide transportation home. Pt will need to filler picker script for Tradjenta tomorrow, as the pharmacy needed to special order it. Instructions placed in pt's discharge summary. Outpatient pharmacy to notify pt's nurse when scripts are ready. No further [facility] needs identified at this time, but is available to assist should needs arise.
[2019-10-27 16:24] VITALS: BP 126/87
[2019-10-27 17:34] VITALS: BP 126/87
--- NOTE | 2019-10-27 18:50 | NUR ---
pt is A&OX3, PT was off o2 since last night, pt's vs and bs are stable, pt denies pain and sob today, pt's ABD LAP sites are dry and clean , RN has received pt dc to home, RN has teaching pt and pt's family about medications , including new medication and how to manage BS , and remind pt to see DR. PT and pt's family understand well, PT has received all new mediations from [facility] out patient pharmacy.pt was going home with family at 1730pm.
--- NOTE | 2019-10-28 08:08 | PATH ---
[facility] [place] [id number] PATHOLOGY RPT PROCEDURE Name: JINNY UMAÑA JR Room #: 360-P [facility] IN M.R.#: [id number] Admission: 10/23/19 Date of : 69 Discharge: 10/27/19 Report #: [id number] Path Case #: [id number] [facility] Accession Number: [id number] . 01 Material submitted: . appendix - APPENDIX . 01 Clinical history: . Appendicitis . 02 Diagnosis: Appendix, appendectomy: - Acute appendicitis and periappendicitis with focal area suggestive of microscopic perforation. . (SKM:mml; 10/27/2019) [facility] 10/27/2019 1128 Local . 02 Electronically signed: . Aman Banuelos MD, Pathologist NPI- [id number] . 01 Gross description: . The specimen is received in formalin, labeled "Jinny Umaña Jr., appendix". Received is a vermiform appendix measuring 6.9 cm in length by up to 1.0 cm in diameter with a large amount of attached mesoappendix. The serosal surface is pink-carver to pink-red in appearance with a slight amount of overlying exudate. The surgical margin is closed with a line of luiz. The luiz are removed the new margin is inked black. Sectioning reveals a patent to dilated lumen filled with a slight amount of fibrinopurulent exudate. The specimen is submitted representatively in cassettes A1 and A2, with the proximal margin and bisected tip submitted in cassette A1. (CAA; 10/24/2019) QAC/QAC 10/24/2019 1708 Local . 02 Pathologist provided ICD-10: K35.80 . 02 CPT . 729281 Specimen Comment: A courtesy copy of this report has been sent to [phone] Specimen Comment: Report sent to Specimen Comment: A duplicate report has been generated due to demographic updates. Performed at: [address] [facility] [id number] PATHOLOGY RPT PROCEDURE Name: JINNY UMAÑA JR Room #: 360-P [facility] IN M.R.#: [id number] Admission: 10/23/19 Date of : 69 Discharge: 10/27/19 Report #: [id number] Path Case #: [id number] [address] [facility] [address], [place] [id number] MD Jorge Tello MD Phone: [phone] Performed at: [address] [id number] MD Kaitlyn Quevedo MD Phone: [phone]
== END 2019-10-27 18:00 | disposition home or self-care (01) | DRG 336 ==
LOC: ER 15:28 → 3W 16:46 → EROBS 17:55 → 3W 18:47 → ENTRNSPT 10-27 17:35 → 3W 10-27 18:00
PROVIDERS: Hospitalist; Physician Assistant; ADMIT Surgery
PROC: 0DTJ4ZZ Resection of Appendix, Percutaneous Endoscopic Approach (ICD-10-PCS; 2019-10-24)
PROC: 0DNU4ZZ Release Omentum, Percutaneous Endoscopic Approach (ICD-10-PCS; 2019-10-24)
PROC: 5A09357 Assistance with Respiratory Ventilation, Less than 24 Consecutive Hours, Continuous Positive Airway Pressure (ICD-10-PCS; principal; 2019-10-26)
DX: K35.80 Unspecified acute appendicitis (principal); I50.42 Chronic combined systolic (congestive) and diastolic (congestive) heart failure; J44.9 Chronic obstructive pulmonary disease, unspecified; G47.33 Obstructive sleep apnea (adult) (pediatric); E66.01 Morbid (severe) obesity due to excess calories; E78.5 Hyperlipidemia, unspecified; E11.9 Type 2 diabetes mellitus without complications; I11.0 Hypertensive heart disease with heart failure; Z79.82 Long term (current) use of aspirin; Z68.31 Body mass index [BMI] 31.0-31.9, adult; Z79.899 Other long term (current) drug therapy
CPT/HCPCS: 10879; 50010; 50101; 50249; 50411; 50555; 50558; 50739; 50740; 51489; 52265; 53307; 53310; 53312; 54022; 54118; 56462; 56525; 56526; 62110; 62900; 70005